=== PATIENT | male | born 1980 | race Two or more races ===

== ENCOUNTER 2019-05-19 15:48 | Emergency (ER) | payer BC, OTHER ==
[~2019-05-19] VITALS: Ht 167.6 cm; Wt 90.3 kg
[2019-05-19 15:55] VITALS: BP 121/71
== END 2019-05-19 17:40 | disposition home or self-care (01) ==
LOC: ER 15:48
DX: J20.9 Acute bronchitis, unspecified (principal)
CPT/HCPCS: 71046